=== PATIENT | male | born 1975 | race African-American/Black ===

== ENCOUNTER 2023-10-22 11:37 | Emergency (ER) | payer MEDICAID ==
[~2023-10-22] VITALS: Ht 185.4 cm; Wt 90.0 kg
[2023-10-22 11:39] VITALS: O2SAT 99
[2023-10-22 11:59] LABS: CLARITY URINE CLEAR (CLEAR); COLOR URINE YELLOW (YELLOW); GLUCOSE URINE NEGATIVE (NEGATIVE); KETONES URINE NEGATIVE (NEGATIVE); LEUKOCYTE ESTERASE URINE NEGATIVE (NEGATIVE); NITRITE URINE NEGATIVE (NEGATIVE); OCCULT BLOOD URINE NEGATIVE (NEGATIVE); PROTEIN URINE NEGATIVE (NEGATIVE); SPECIFIC GRAVITY URINE 1.016 (1.005-1.030)
[2023-10-22 12:22] LABS: BASOPHILS % 0.7 % (0.0-2.0); DIFFERENTIAL COMMENT 0; EOSINOPHILS % 1.8 % (0.0-5.0); HEMATOCRIT. 37.9 % (42.0-52.0); HEMOGLOBIN. 12.6 g/dL (14.0-18.0); LYMPHOCYTES % 28.6 % (20.0-50.0); MEAN CORPUSCULAR HEMOGLOBIN 25.9 pg (28.0-32.0); MEAN CORPUSCULAR HGB CONC 33.2 g/dL (31.0-37.0); MEAN PLATELET VOLUME 7.1 fl (7.4-10.4); MONOCYTES % 6.5 % (2.0-8.0); NEUTROPHILS % 62.4 % (40.0-76.0); PLATELET 320 x1000/uL (130-400); RED BLOOD CELL COUNT 4.85 mill/uL (4.7-6.1); RED CELL DISTRIBUTION WIDTH 17.8 % (11.6-14.6); WHITE BLOOD COUNT 5.8 x1000/uL (4.5-11.0)
[2023-10-22 12:28] LABS: CHLORIDE 106 mEq/L (98-107); POTASSIUM 4.3 mEq/L (3.5-5.1); SODIUM 139 mEq/L (136-145)
[2023-10-22 12:29] LABS: CALCIUM 9.4 mg/dL (8.7-10.4); CARBON DIOXIDE 26 mEq/L (21-32)
[2023-10-22 12:32] LABS: INR 0.9; PROTHROMBIN TIME 10.2 sec (9.6-11.0)
[2023-10-22 12:34] LABS: CREATININE 1.2 mg/dL (0.6-1.3); UREA NITROGEN BLOOD 10 mg/dL (9-23)
[2023-10-22 12:35] LABS: LACTIC ACID 2.4 mmol/L (0.4-2.0)
[2023-10-22 12:42] LABS: GLUCOSE 127 mg/dL (70-105)
[2023-10-22] MEDS: VANCOMYCIN 1G PREMIX 200 ML IV SCH (14:00)
[2023-10-22] MEDS: METRONIDAZOLE 500 MG PREMIX 100 ML IV NR (14:15)
[2023-10-22] MEDS: KETOROLAC 30MG/ML VIAL IV NR (14:15)
[2023-10-22] MEDS: SODIUM CHLORIDE 0.9% 1,000 ML IV ONE (14:45)
[2023-10-22] MEDS: PIPERACILLIN/TAZO 3.375G/50ML 50 ML IV SCH (15:00)
[2023-10-22 18:28] VITALS: BP 124/63; PULSE 62; RESP 17; TEMP 97.9
== END 2023-10-22 18:31 | disposition short-term general hospital (02) ==
LOC: ER 11:37
DX: M86.8X7 Other osteomyelitis, ankle and foot (principal); L97.518 Non-pressure chronic ulcer of other part of right foot with other specified severity; F12.90 Cannabis use, unspecified, uncomplicated; E11.621 Type 2 diabetes mellitus with foot ulcer; I10 Essential (primary) hypertension
CPT/HCPCS: 80048; 81003; 83880; 83605; 85025; 85610; 87040; 36415; 73630; 96367; 96368; 96365; 96366; 96375; 99285; J1885; J3490; J2543; J3370; J7030; Z7610 ×3

== ENCOUNTER 2023-10-23 20:12 | Emergency (ER) | payer MEDICAID ==
[~2023-10-23] VITALS: Ht 188 cm; Wt 103.4 kg
[2023-10-23 20:49] VITALS: BP 126/69; PULSE 87; RESP 18; TEMP 98.4; O2SAT 100
== END 2023-10-24 00:59 | disposition left against medical advice (07) ==
LOC: ER 20:12
DX: M79.605 Pain in left leg (principal); Z53.21 Procedure and treatment not carried out due to patient leaving prior to being seen by health care provider